=== PATIENT | male | born 1945 | race Caucasian/White ===

== ENCOUNTER 2022-04-19 12:26 | Outpatient (CLI) | payer MEDICARE, BC | END 2022-04-19 12:27 | disposition home or self-care (01) | LOC: EEG 12:26 | PROVIDERS: ATTEND Internal Medicine | DX: G40.909 Epilepsy, unspecified, not intractable, without status epilepticus (principal) | CPT/HCPCS: 95816; 95957 ==

== ENCOUNTER 2022-04-26 10:12 | Day surgery (SDC) | payer MEDICARE, BC ==
[2022-04-25 15:29] VITALS: BMI 27.3
[2022-04-26 10:46] VITALS: BP 122/69; TEMP 98
[2022-04-26] MEDS ORDERED: FLU VACC QS2022-23(65YR UP)/PF 240 MCG/0.7 ML SYRINGE IM ONE (11:00)
[2022-04-26 12:24] LABS: CSF RBC Count - Manual 1 /cu.mm (None Seen); CSF Source CSF; CSF WBC/NonHematics Count-Man 84 /cu.mm (0-5); Clarity Clear (Clear); Tube # 4
[2022-04-26 12:31] LABS: CSF, Glucose 51 mg/dl (40-70); CSF, Protein 63 mg/dL (15-40)
[2022-04-26 13:28] LABS: Cell Count Non Hematic 23 %; Lymphocytes 70 %; Segmented Neutrophils 7 %
[2022-04-26 18:47] LABS: Color Of CSF Supernatant YELLOW (Colorless); Tube # 1; Unspun CSF Color PALE YELLOW (Colorless)
== END 2022-04-26 12:43 | disposition home or self-care (01) ==
LOC: RAD 10:12
PROVIDERS: ATTEND Internal Medicine Hematology & Oncology
PROC: 009U3ZX Drainage of Spinal Canal, Percutaneous Approach, Diagnostic (ICD-10-PCS; principal; 2022-04-26)
DX: C79.31 Secondary malignant neoplasm of brain (principal); C61 Malignant neoplasm of prostate; J45.909 Unspecified asthma, uncomplicated; Z79.82 Long term (current) use of aspirin; Z79.890 Hormone replacement therapy; Z79.899 Other long term (current) drug therapy
CPT/HCPCS: 62270; 82945; 84157; 85060; 87070; 87205; 88112; 88184; 89051

== ENCOUNTER 2022-05-01 12:24 | Outpatient (CLI) | payer MEDICARE, BC | END 2022-05-01 12:25 | disposition home or self-care (01) | LOC: SCSMRI 12:24 | PROVIDERS: ATTEND Internal Medicine Hematology & Oncology | DX: C79.31 Secondary malignant neoplasm of brain (principal); M47.812 Spondylosis without myelopathy or radiculopathy, cervical region; M48.02 Spinal stenosis, cervical region; M89.9 Disorder of bone, unspecified; M51.34 Other intervertebral disc degeneration, thoracic region; M50.321 Other cervical disc degeneration at C4-C5 level; M50.322 Other cervical disc degeneration at C5-C6 level; M40.204 Unspecified kyphosis, thoracic region | CPT/HCPCS: 72156; 72157; 72158 ==

== ENCOUNTER → 2022-05-03 | Outpatient (CLI) | payer MEDICARE, BC | LOC: PET 08:00 | PROVIDERS: ATTEND Internal Medicine Hematology & Oncology | DX: C79.31 Secondary malignant neoplasm of brain (principal); C80.1 Malignant (primary) neoplasm, unspecified; K11.8 Other diseases of salivary glands; R91.1 Solitary pulmonary nodule | CPT/HCPCS: 78815; A9552 ==

== ENCOUNTER 2022-06-19 06:59 | Day surgery (SDC) | payer MEDICARE, BC ==
[2022-06-13 12:32] VITALS: BMI 21.2
[2022-06-19 08:32] VITALS: TEMP 97
[2022-06-19 09:29] LABS: CSF RBC Count - Manual 0 /cu.mm (None Seen); CSF Source CSF; CSF WBC/NonHematics Count-Man 10 /cu.mm (0-5); Clarity Clear (Clear); Tube # 4
[2022-06-19 09:45] LABS: CSF, Glucose 53 mg/dl (40-70); CSF, Protein 46 mg/dL (15-40)
[2022-06-19 09:48] VITALS: BP 152/80
[2022-06-19 11:50] LABS: Cell Count Non Hematic 53 %; Lymphocytes 43 %; Segmented Neutrophils 4 %
== END 2022-06-19 09:40 | disposition home or self-care (01) ==
LOC: RAD 06:59
PROVIDERS: ATTEND Internal Medicine Hematology & Oncology
PROC: 009U3ZX Drainage of Spinal Canal, Percutaneous Approach, Diagnostic (ICD-10-PCS; principal; 2022-06-19)
DX: C79.31 Secondary malignant neoplasm of brain (principal)
CPT/HCPCS: 62270; 82945; 84157; 85060; 87070; 87205; 88112; 88184; 89051

== ENCOUNTER 2022-06-20 08:36 | Outpatient (CLI) | payer MEDICARE, BC | END 2022-06-20 08:37 | disposition home or self-care (01) | LOC: SCSMRI 08:36 | PROVIDERS: ATTEND Internal Medicine Hematology & Oncology | DX: C79.31 Secondary malignant neoplasm of brain (principal) | CPT/HCPCS: 70553; 82565 ==